=== PATIENT | female | born 1960 | race Caucasian/White ===

== ENCOUNTER → 2017-03-24 | Outpatient (CLI) | payer OTHER ==
[2015-01-21 10:15] VITALS: BP 149/82
--- NOTE | 2017-03-25 10:24 | MG ---
HISTORY: SCREENING Comparison: None FINDINGS: Bilateral CC and MLO projections of the right and left breast were obtained. Scattered fibroglandul ar tissue is seen to be present. There is a partially obscured nodular focal asymmetry within the up per outer left breast at posterior depth. Otherwise, there is no significant architectural distortio n, mass or clustered microcalcifications can be observed to suggest malignancy. No skin thickening or nipple retraction is appreciated. No pathological lymphadenopathy can be identified. Benign-francis earing calcifications scattered throughout the right and left breasts are observed. IMPRESSION: A nodular focal asymmetry within the upper outer left breast appears benign, but is par tially obscured. Considerations include benign intramammary lymph node, fibroadenoma, or cyst. Recom mend spot mammographic images and ultrasound to further evaluate and in order to establish a baselin e. ACR CATEGORY: 0 - assessment incomplete; additional imaging is needed Diagnostic CAD was utilized and reviewed. * 0 (ZERO) - ASSESSMENT INCOMPLETE; ADDITIONAL IMAGING IS NEEDED. * 1/1 (ONE) - NEGATIVE. * 2/II (TWO) - BENIGN FINDINGS. * 3/III (THREE) - PROBABLY BENIGN FINDING; SHORT INTERVAL FOLLOW-UP SUGGESTED. * 4/IV (FOUR) - SUSPICIOUS ABNORMALITY; BIOPSY SHOULD BE CONSIDERED. * 5/V - HIGHLY SUSPICIOUS OF MALIGNANCY; BIOPSY SHOULD BE PERFORMED. A NEGATIVE X-RAY REPORT SHOULD NOT DELAY BIOPSY IF A DOMINANT OR CLINICALLY SUSPICIOUS MASS IS PRESENT; 4 TO 8 PERCENT OF CANCERS ARE NOT IDENTIFIED BY X-RAY. A NEG ATIVE REPORT MAY REINFORCE THE CLINICAL IMPRESSION. ADENOSIS AND DENSE BREASTS MAY OBSCURE AN UNDER LYING NEOPLASM. Reported By:
== END ==
LOC: RAD 11:12
DX: Z12.31 Encounter for screening mammogram for malignant neoplasm of breast (principal)
CPT/HCPCS: 77067

== ENCOUNTER → 2017-05-03 | Outpatient (CLI) | payer OTHER ==
[2015-01-21 10:15] VITALS: BP 149/82
--- NOTE | 2017-05-03 16:46 | US ---
Examination: Unilateral left diagnostic mammogram and left breast ultrasound. Clinical history: Abnormal screening mammogram. Technique: Additional digital images of the left breast were obtained. Targeted left breast ultrasou nd was also obtained evaluating the upper outer aspect of the left breast. Comparison: Screening mammogram dated 03/24/2017. No older examinations are available for comparison. Findings: The left breast is composed of scattered fibroglandular densities. Benign-appearing calcifications a re noted in the left breast. Skin moles are present overlying the left breast. There are 2 benign appearing oval masses present in the upper outer aspect of the left breast in the posterior depth, measuring 5 mm and 8 mm in size respectively, likely representing small intramamma ry lymph nodes. An additional ill-defined 8 mm density is seen in the superior portion of the left breast in the pos terior depth on the MLO view only, which is partially obscured by surrounding fibroglandular tissue and is not confirmed on the lateral or exaggerated CC views and is probably due to summation artifac t from overlapping fibroglandular tissue. Targeted left breast ultrasound evaluating the upper outer aspect of the left breast reveals a 0.5 x 0.4 x 0.7 cm benign-appearing lymph node present at the 1 o'clock position. An additional 0.5 x 1.0 x 0.9 cm benign-appearing lymph node is also noted at the 1 o'clock position. A tiny 0.3 x 0.4 cm i ntramammary lymph node is also seen at the 1 o'clock position. The findings appear to correlate with findings on the mammogram. There is a small 0.5 x 0.2 cm circumscribed oval hypoechoic mass present at the 2 o'clock position, which has some internal echoes and has a benign appearance and could represent a small complicated b enign cyst, fibroadenoma or intramammary lymph node. A followup left diagnostic mammogram and left b reast ultrasound is recommended in 6 months to ensure stability of this finding. Impression: 1. Probably benign findings in the left breast, as described above. BI-RADS category 3/III (THREE) - PROBABLY BENIGN FINDING; SHORT INTERVAL FOLLOW-UP SUGGESTED. If Recommend a followup left diagnostic mammogram and left breast ultrasound in 6 months to ensure stab ility of the findings in the left breast. Diagnostic CAD was utilized and reviewed. * 0 (ZERO) - ASSESSMENT INCOMPLETE; ADDITIONAL IMAGING IS NEEDED. * 0C - ASSESSMENT INCOMPLETE, NEEDS ADDITIONAL IMAGING EVALUATION AND/OR PRIOR MAMMOGRAMS FOR COMPAR NAILA. * 1/ (ONE) - NEGATIVE. * 2/II (TWO) - BENIGN FINDINGS. * 3/III (THREE) - PROBABLY BENIGN FINDING; SHORT INTERVAL FOLLOW-UP SUGGESTED. * 4/IV (FOUR) - SUSPICIOUS ABNORMALITY; BIOPSY SHOULD BE CONSIDERED. * 5/V - HIGHLY SUSPICIOUS OF MALIGNANCY; BIOPSY SHOULD BE PERFORMED. * 6/IV - KNOWN BIOPSY PROVEN MALIGNANCY-APPROPRIATE ACTION SHOULD BE TAKEN. A NEGATIVE X-RAY REPORT SHOULD NOT DELAY BIOPSY IF A DOMINANT OR CLINICALLY SUSPICIOUS MASS IS PRESENT; 4 TO 8 PERCENT OF CANCERS ARE NOT IDENTIFIED BY X-RAY. A NEGATIVE REPORT MAY REINFORCE THE CLINICAL IMPRESSION. ADENOSIS AND DENSE BREASTS MAY OBSCURE AN UNDERLYING NEOPLASM. Reported By:
== END ==
LOC: RAD 14:49
PROVIDERS: ATTEND Physician Assistant
DX: Z12.31 Encounter for screening mammogram for malignant neoplasm of breast (principal)
CPT/HCPCS: 76642; 77065